=== PATIENT | female | born 2000 | race Two or more races ===

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

== ENCOUNTER 2022-09-08 14:24 | Emergency (ER) | payer OTHER ==
[~2022-09-08] VITALS: Ht 147.3 cm; Wt 49.9 kg
[2022-09-08] MEDS ORDERED: FOCALIN10 MG PO (15:14)
[2022-09-08] MEDS ORDERED: PROSCAR5 MG PO (15:15)
[2022-09-08] MEDS ORDERED: DUI500 PO (17:59)
[2022-09-08] MEDS ORDERED: DICLOFENAC SODI75 MG PO (17:59)
== END 2022-09-08 18:12 | disposition home or self-care (01) ==
LOC: ER 14:24
DX: M25.571 Pain in right ankle and joints of right foot (principal)

== ENCOUNTER 2024-05-12 14:18 | Emergency (ER) | payer OTHER ==
[~2024-05-12] VITALS: Ht 147.3 cm; Wt 54.4 kg
[~2024-05-12 14:18] MED LIST: DICLOFENAC SODI75 MG PO; DUI500 PO; FOCALIN10 MG PO; PROSCAR5 MG PO
[2024-05-12] MEDS ORDERED: KETOROLAC TROMETHAMINE 30 MG VIAL IM STA (17:17)
[2024-05-12] MEDS ORDERED: KETOROLAC TROMETHAMINE 30 MG VIAL ONE (17:21)
[2024-05-12 17:36] LABS: HEMATOCRIT 35.6 % (36.0-45.00); HEMOGLOBIN 11.4 g/dL (12.0-15.00); MEAN CELL VOLUME 81.3 fL (80.00-100.00); MEAN CORPUSCULAR HEMOGLOBIN 26.2 pg (27.00-32.0); MEAN CORPUSCULAR HGB CONC 32.2 g/dl (32.0-36.0); PLATELET COUNT 300 K/uL (150-450); RED BLOOD COUNT 4.37 M/uL (4.00-6.00); RED CELL DISTRIBUTION WIDTH 15.3 % (11.5-14.5)
[2024-05-12 17:40] LABS: ERYTHROCYTE SEDIMENTATION RATE 21 mm/hr
[2024-05-12 18:03] LABS: CALCIUM 9.5 mg/dL (8.5-10.1); CREATININE SERUM 0.65 mg/dL (0.55-1.02); GFR 111.98; POTASSIUM 4.09 mEq/L (3.5-5.1)
[2024-05-12 18:08] LABS: C-REACTIVE PROTEIN 2.53 MG/DL (0.00-0.29)
== END 2024-05-12 18:58 | disposition home or self-care (01) ==
LOC: ER 14:21
PROVIDERS: General Practice
DX: M79.644 Pain in right finger(s) (principal)